=== PATIENT | female | born 1960 | race African-American/Black ===

== ENCOUNTER 2018-03-06 01:28 | Emergency (ER) | payer OTHER ==
[~2018-03-06] VITALS: Ht 154.9 cm; Wt 86.2 kg
[2018-03-06] MEDS ORDERED: LOSARTAN POTASS50 MG (01:47)
== END 2018-03-06 08:35 | disposition home or self-care (01) ==
LOC: ER 01:28 → CPU-OBS 01:44 → ER 08:35
DX: R07.89 Other chest pain (principal); R00.2 Palpitations; R06.02 Shortness of breath; F06.4 Anxiety disorder due to known physiological condition
CPT/HCPCS: G0378; G0379; 93005